=== PATIENT | female | born 1980 | race Caucasian/White ===

== ENCOUNTER → 2021-03-02 | Outpatient (CLI) | payer OTHER ==
[~2021-03-02] MED LIST: BUSP5TAB PO; CALC500T54 PO; CHOL10004 PO; DOCU-153 PO; FLUO10TA PO; HYDR-2761 PO; LACT1CAP21 PO; MAGN250T10 PO; METH-562 PO
[2021-03-02 13:30] LABS: BASO % 1 % (0-3); EOS # 0.1 x10^3/uL (0.0-0.7); EOS % 2 % (0-3); HEMATOCRIT 38.3 % (36.0-47.0); HEMOGLOBIN 13.1 g/dL (12.0-15.5); LYMPH # 1.4 x10^3/uL (1.0-4.8); LYMPH % 23 % (24-48); MEAN CORPUSCULAR HEMOGLOBIN 31 pg (25-35); MEAN CORPUSCULAR HGB CONC 34 g/dL (31-37); MEAN CORPUSCULAR VOLUME 91 fL (79-100); MONO # 0.5 x10^3/uL (0.0-1.1); MONO % 7 % (0-9); NEUT # 4.3 x10^3/uL (1.8-7.7); NEUT % 68 % (31-73); PLATELET COUNT 197 x10^3/uL (140-400); RED BLOOD COUNT 4.19 x10^6/uL (3.50-5.40); RED CELL DISTRIBUTION WIDTH 12.8 % (11.5-14.5); WHITE BLOOD COUNT 6.3 x10^3/uL (4.0-11.0)
[2021-03-02 13:38] LABS: PROTHROMBIN TIME PATIENT 13.5 SEC (11.7-14.0)
[2021-03-02 13:47] LABS: ALBUMIN 4.2 g/dL (3.4-5.0); ALBUMIN/GLOBULIN RATIO 1.4 (1.0-1.7); CALCIUM 9.4 mg/dL (8.5-10.1); CREATININE 0.8 mg/dL (0.6-1.0); GFR 78.7; POTASSIUM 4.2 mmol/L (3.5-5.1); TOTAL BILIRUBIN 0.3 mg/dL (0.2-1.0); TOTAL PROTEIN 7.2 g/dL (6.4-8.2)
== END ==
LOC: SURGPAT 12:58
PROVIDERS: ATTEND Neurological Surgery
DX: Z01.818 Encounter for other preprocedural examination (principal); M43.16 Spondylolisthesis, lumbar region; M48.062 Spinal stenosis, lumbar region with neurogenic claudication; M54.16 Radiculopathy, lumbar region
CPT/HCPCS: 36415; 80053; 82306; 85025; 85610; 85730; 87641

== ENCOUNTER 2021-03-03 08:30 | Inpatient (IN) | payer OTHER ==
[2021-03-02 13:22] VITALS: BP 107/68
[~2021-03-03] VITALS: Ht 160 cm; Wt 48.0 kg
[~2021-03-03 08:30] MED LIST changes: -CALC500T54 PO; -CHOL10004 PO; -DOCU-153 PO; -HYDR-2761 PO; -METH-562 PO
[2021-03-07] VITALS (9 sets, daily range): BP systolic 98–122; BP diastolic 57–74
[2021-03-07] MEDS ORDERED: HYDROmorphone 2 MG/ML VIAL IVP PRN (06:00)
[2021-03-07] MEDS ORDERED: PROCHLORPERAZINE 10 MG/2 ML VIAL. IVP PRN (06:00)
[2021-03-07] MEDS ORDERED: fentaNYL PF VIAL 100 MCG/2 ML VIAL IVP PRN ×2 (06:00)
[2021-03-07] MEDS ORDERED: MORPHINE SULFATE 2 MG/ML VIAL. IVP PRN (06:00)
[2021-03-07] MEDS ORDERED: IV RINGERS,LACTATED 1000ML 1,000 ML IV SCH (06:00)
[2021-03-07] MEDS ORDERED: GELATIN SPONGE SIZE 100. ONE (06:29)
[2021-03-07] MEDS ORDERED: KETOROLAC 60 MG/2 ML VIAL. ONE (06:29)
[2021-03-07] MEDS ORDERED: BUPIVACAINE-EPI 0.5%-1:200000 MPF 30 ML VIAL. ONE (06:29)
[2021-03-07] MEDS ORDERED: THROMBIN TOPICAL 20,000 UNIT SPRAY.SYRN KIT TP ONE (06:29)
[2021-03-07] MEDS ORDERED: CALC500T54 PO (06:44)
[2021-03-07] MEDS ORDERED: CHOL10004 PO (06:44)
[2021-03-07] MEDS ORDERED: PROPOFOL 100 ML IV ONE (07:59)
--- NOTE | 2021-03-07 08:01 | HP ---
03/07/2021 PREOPERATIVE HISTORY AND PHYSICAL HISTORY OF PRESENT ILLNESS: The patient is a pleasant 40-year-old who is having difficulty with back pain and significant right leg pain. She says the back pain is minimal. The leg pain involves the right buttock, posterior thigh, lateral thigh and leg. She says she feels numbness on occasion at the dorsum of her right foot. She says if she walks distances, she can feel her right foot slapping down. The problem is worse with activity and improves with sitting down or lying down. She is not taking any pain medication currently. She has had lumbar steroid injections, which did not help her. She has been doing physical therapy twice a week with no improvement. She also sees a chiropractor once a month. The problem began in 2018 with no inciting event. She rates her pain 7/10 at its worst, but it is usually 3-4/10. CURRENT MEDICATIONS: Fluoxetine, magnesium. PAST MEDICAL HISTORY: Anxiety. PAST SURGICAL HISTORY: Denies. SOCIAL HISTORY: , does not smoke, does not drink alcohol. ALLERGIES: No known drug allergies. REVIEW OF SYSTEMS: A 12-point review of systems was performed and is noncontributory except that mentioned above. PHYSICAL EXAMINATION: GENERAL: Alert and pleasant, in no acute distress. HEENT: Head is normocephalic, atraumatic. SKIN: Warm and dry. MUSCULOSKELETAL: Lumbar paraspinal muscle bulk is normal. Mild tenderness of the lower lumbar spine with palpation, normal range of motion of the lower extremities bilaterally. EXTREMITIES: No clubbing, cyanosis or edema. NEUROLOGIC: Alert and oriented x 3. Strength is 5/5 in the upper and lower extremities bilaterally. On sensory testing, she was intact to light touch bilaterally. In the upper and lower extremities, reflexes were 1+ throughout. Straight leg raising on the right was associated with right posterior thigh tightness and discomfort. Straight leg raising on the left was negative. Normal gait. IMAGING: I reviewed a lumbar MRI scan. On that study, there is a grade 2 anterolisthesis of L4 and L5. She has bilateral pars defects. I did not see significant canal stenosis. She had moderately severe bilateral neural foraminal narrowing which is worse on the right side. ASSESSMENT AND PLAN: She has a symptomatic radiculopathy related to spondylolisthesis and severe neural foraminal narrowing. She has had epidural steroid injections as well as physical therapy. Her pain is severe. My recommendation is for her to consider a laminectomy and instrumented fusion at L4-L5. I did discuss this with her. We also discussed the possibility of interbody fusion from an anterior lateral approach. I discussed the risk of surgery. I also discussed the expected postoperative course. She understands and would like to go ahead. EVGENY DR: Rishabh TID: [id number] BARBI
[2021-03-07] MEDS ORDERED: LIDOCAINE 2% PF 5 ML VIAL. ONE (08:02)
[2021-03-07] MEDS ORDERED: MIDAZOLAM HCL/PF 2 MG/2 ML VIAL. ONE (08:02)
[2021-03-07] MEDS ORDERED: REMIFENTANIL 2 MG VIAL. IV ONE (08:02)
[2021-03-07] MEDS ORDERED: ROCURONIUM 50 MG/5 ML VIAL. ONE (08:02)
[2021-03-07] MEDS ORDERED: fentaNYL PF VIAL 100 MCG/2 ML VIAL ONE (08:02)
[2021-03-07] MEDS ORDERED: PROPOFOL 10 MG/ML (20ML) VIAL. IV ONE (08:02)
[2021-03-07] MEDS ORDERED: 0.9 % SODIUM CHLORIDE 20 ML VIAL. IJ ONE (08:02)
--- NOTE | 2021-03-07 08:55 | RAD ---
EXAMINATION: CT lumbar spine without IV contrast INDICATION:40 years, Female, lumbar stenosis. COMPARISON: None TECHNIQUE: Spiral acquisition of images of the lumbar spine were obtained from the lower thoracic to the mid sacral levels. Sagittal and coronal 2D reformatted series were provided by the technologist. The CT scan was acquired using radiation reduction techniques, such automated exposure control, adjus tment of the mA and/or kV according to the patient's size and use of iterative reconstruction techniq ues. FINDINGS: Alignment: Chronic bilateral L5 pars defect with grade 1 anterolisthesis of L5 over S1. Vertebrae: There are 6 nonrib-bearing lumbar vertebra with lumbarization of S1. Severe degenerative c hanges at L5-S1 with disc space narrowing, endplate erosion, sclerosis and cystic changes as well as osteophytes. Curvilinear shape well-corticated osseous structure anterior to the S1 vertebral body, m ay represent chronic S1 anterior superior endplate fracture. Limbus vertebrae at L2 anterior superior endplate and S1 anterior inferior endplate. Schmorl's node at the superior endplate of L1. T12-L1: There is no central canal or neural foraminal narrowing. L1-L2: There is no central canal or neural foraminal narrowing. L2-L3: There is no central canal or neural foraminal narrowing. L3-L4: There is no central canal or neural foraminal narrowing. L4-L5: There is no central canal or neural foraminal narrowing. L5-S1:Grade 1 anterolisthesis of L4 over L5 with diffuse disc bulge and mild bilateral facet arthropa thy, causing severe bilateral neuroforaminal narrowing. No canal stenosis. Sacroiliac Joints: Unremarkable Additional findings: Unremarkable, within limitation of noncontrast exam. IMPRESSION: Chronic bilateral L5 pars defect with grade 1 anterolisthesis of L5 over S1, associated with diffuse disc bulge causing severe bilateral neuroforaminal narrowing. No Central canal stenosis. Electronically signed by: Oscar Palmer MD (03/07/2021 8:53 AM) [id number]
[2021-03-07] MEDS ORDERED: ePHEDrine PF IN SALINE 50 MG/10 ML SYRINGE. IV ONE (10:15)
[2021-03-07] MEDS ORDERED: PHENYLEPHRINE 10 MG/ML VIAL. ONE (10:57)
[2021-03-07] MEDS ORDERED: REMIFENTANIL 1 MG VIAL. IV ONE (11:49)
[2021-03-07] MEDS ORDERED: PROPOFOL 50 ML IV ONE (11:52)
[2021-03-07] MEDS ORDERED: SEVOFLURANE > 120 MINUTES. IH ONE (11:53)
[2021-03-07] MEDS ORDERED: ceFAZolin SODIUM IV Push 1 GM VIAL. IVP ONE (12:37)
[2021-03-07] MEDS ORDERED: HYDROmorphone 2 MG/ML VIAL ONE (13:00)
[2021-03-07] MEDS ORDERED: CALCIUM CARBONATE PO PRN (13:45)
[2021-03-07] MEDS ORDERED: MAGNESIUM HYDROXIDE 2,400 MG/30 ML ORAL.SUSP. PO PRN (14:00)
[2021-03-07] MEDS ORDERED: NALOXONE 0.4 MG/ML VIAL. IV PRN (14:00)
[2021-03-07] MEDS ORDERED: 0.9 % SODIUM CHLORIDE 10 ML DISP.SYRIN. IV PRN (14:00)
[2021-03-07] MEDS ORDERED: ACETAMINOPHEN 325 MG TABLET. PO PRN (14:00)
[2021-03-07] MEDS ORDERED: MAG HYDROX/ALUMINUM HYD/SIMETH 30 ML ORAL.SUSP PO PRN (14:00)
[2021-03-07] MEDS ORDERED: oxyCODONE/APAP 5/325 1 TAB TABLET PO PRN (14:00)
[2021-03-07] MEDS ORDERED: CALCIUM CARBONATE 500 MG TAB.CHEW PO PRN (14:00)
[2021-03-07] MEDS ORDERED: diphenhydrAMINE HCL 25 MG CAPSULE PO PRN (14:00)
[2021-03-07] MEDS ORDERED: PROCHLORPERAZINE 10 MG/2 ML VIAL. ONE (14:11)
--- NOTE | 2021-03-07 14:52 | OP ---
DATE OF SURGERY: 03/07/2021 PREOPERATIVE DIAGNOSES: Grade 2 spondylolisthesis L4-L5 with severe right-sided foraminal narrowing and severe right lumbar radiculopathy. POSTOPERATIVE DIAGNOSES: Grade 2 spondylolisthesis L4-L5 with severe right-sided foraminal narrowing and severe right lumbar radiculopathy. OPERATIONS PERFORMED: 1. Hemilaminotomy and transforaminal exploration and decompression of the right L4 and L5 nerve roots with microdiscectomy, right L4-L5. 2. Posterior instrumentation, L4-L5. 3. Posterolateral fusion L4-L5. Operation done with EMG monitoring, SSEP monitoring, motor evoked potentials, fluoroscopy, microscopic dissection, BrainLAB guidance. SPECIMEN: Disc and decompression. SURGEON: Esteban Kaur M.D. VAN DRIVER HELPER: Emily Issa APRN, assisted with the exposure, the placement of the pedicle screws, posterolateral fusion, decompression and closure. OPERATIVE INDICATIONS: The patient is a very pleasant 40-year-old who developed intractable back and right leg pain which failed conservative measures and has above-mentioned findings on imaging studies. I have recommended lumbar surgery. I did speak with her about the surgery, the risks, technique and expected postoperative course. She wished to go ahead. DESCRIPTION OF PROCEDURE: Following general endotracheal anesthesia, the patient was positioned prone on the Christopher table. Lumbar region prepped and draped in standard fashion. BLESSING hose and AV impulse boots were applied for DVT prophylaxis. The microscope was draped, fluoroscopy was draped and brought into the field. Monitoring was established. Ancef 2 grams given less than one hour prior to initiation of surgery. Using fluoroscopic guidance, a midline incision was made directly over the L5 spinous process. I attached the BrainLAB Star to the inferior aspect of the process and the BrainLAB system was initialized. I then carried my incision up to the superior L4 through inferior L5 and reflected the paraspinal muscles. Then, I exposed the lamina and facets as well as the transverse processes. I did drill into the posterior aspect of the pedicles of L4 and L5 using the black ball, followed by ball tip probe, followed by tap. I tapped at L5 and L4 and on the left side, placed the pedicle screws after I excoriated the transverse processes, lateral facets and aspirated 20 mL of bone marrow from the left iliac crest and mixed this with allograft bone and packed in the left lateral gutter. I did note that there was considerable sclerotic bone deep within L5, which prevented me from passing the jewel waxer without stripping to the full depth of the bone. I therefore settled on a 7.5, 35 screws in the L5, which I felt had very good purchase. The screw was placed. I did use the [place] spine system and then I went to L4. I was able to easily place a 6.5 x 40 screw in that location. A 35 mm ramy was placed. I did use reduction screws in L4. The L5 screw was then locked and torqued and that was applied to L4, but not tightened and then I went to the right side in a similar fashion, I cannulated the pedicles of L4 and L5. I did not yet place the pedicle screws. I then brought in the microscope and with microscopic technique. Using BrainLAB guidance, I burred down a hemilaminotomy. I worked superiorly and found a considerable amount of hypertrophic bone, which was wedged into the proximal and medial portion of the foramen and densely scarred to the underlying ligamentum flavum. I had to work quite far superiorly encountered the dura and follow takeoff of the nerve root and root around the pedicle lifting and removing this bone was then allowed me to gain access. After thinning the bone, I used a 2 mm micro Kerrisons to trim the residual bone away as well as ligament, which allowed me to decompress the roots in an atraumatic fashion. During this time, I performed a hemilaminotomy and peeled ligamentum flavum away and performed a small partial foraminotomy and fully decompressed the entire region. I excoriated laterally then the facet and the transverse process were packed allograft bone in that location along with autograft that I obtained from the decompression. I then placed pedicle screws 7.5 x 35 in L5 and 6.5 x 40 in L4. The ramy was placed. I distracted slightly and reduced. I did enter the disc space and performed discectomy, but there was very little disc material within here. Based on the position of the L4 root, I felt that cage placement would expose the root to considerable amount of possible injury and I did not place an interbody cage. The disc was covered with hypertrophic bone. I did drill through this to gain access into the disc space. At this point, I had an excellent decompression, the root was free and pulsating and was ribbon-like before when I first visualized it compressed beneath the hypertrophic bone. I had excellent hemostasis. I did lay Gelfoam over the exposed size. I irrigated copiously and then I during this time torqued and retorqued the hardware sequentially. Films looked excellent. I removed the towers and after irrigation, then I closed the wound in layers with absorbable suture and skin was closed with 4-0 subcuticular stitch. I felt the surgery went very well. KEMAR/ANNETTE DR: KEMAR/eileen TID: [id number] MTDAlly
--- NOTE | 2021-03-07 16:03 | NUR ---
received from recovery. she is rating her pain "3". history and assessment completed. she has good motion sensation, pulses in lower extremities. resting quietly in bed with ice to incisional area.
[2021-03-07] MEDS: ceFAZolin SODIUM IV Push 1 GM VIAL. IVP SCH ×2 (17:18→21:24)
[2021-03-07] MEDS: POTASSIUM CL 20MEQ D5-0.45NACL 1,000 ML IV SCH (18:14)
[2021-03-07] MEDS ORDERED: ONDANSETRON PF 4 MG/2 ML VIAL. IVP PRN (18:15)
[2021-03-07] MEDS: fentaNYL PF VIAL 100 MCG/2 ML VIAL IVP PRN (18:19)
[2021-03-07] MEDS: DOCUSATE SODIUM 100 MG CAPSULE. PO SCH (21:26)
[2021-03-07] MEDS: oxyCODONE/APAP 5/325 1 TAB TABLET PO PRN (21:30)
[2021-03-08] VITALS (13 sets, daily range): BP systolic 61–111; BP diastolic 35–71
[2021-03-08] MEDS: POTASSIUM CL 20MEQ D5-0.45NACL 1,000 ML IV SCH ×2 (03:20→15:52)
[2021-03-08] MEDS: oxyCODONE/APAP 5/325 1 TAB TABLET PO PRN (04:35)
[2021-03-08] MEDS: fentaNYL PF VIAL 100 MCG/2 ML VIAL IVP PRN (05:58)
[2021-03-08] MEDS: ceFAZolin SODIUM IV Push 1 GM VIAL. IVP SCH (06:00)
[2021-03-08] MEDS: FLUoxetine HCL 10 MG CAPSULE PO SCH (06:25)
[2021-03-08] MEDS: busPIRone 5 MG TABLET. PO SCH (06:25)
[2021-03-08] MEDS: DOCUSATE SODIUM 100 MG CAPSULE. PO SCH ×2 (08:40→20:36)
--- NOTE | 2021-03-08 11:32 | NUR ---
This nurse was called into the patients room around 0900. Pain medication was given around 0840 and she also ambulated to the bathroom around 0850. At 0900 patient was sitting up in the chair stating she felt dizzy, sweaty, vision was blurry, shaking slightly, and appeared very tense. Vital signs taken. BP low 61/35 with P at 52. Patient was reclined in the recliner and a small bolus of 50cc given. Vitals were taken roughly every fifteen minutes and has now stabilized back to her normal BP ranges per patient report. Patient and her are unsure if it was the pain medication that caused it or if she was having a panic attack or if it was possibly an orthostatic BP from the bathroom trip. Last BP taken was 111/71 with pulse of 103. Patient reports her pain around a 2-3. She states she feels much better but when PT came to assess her around 1100 she asked him to come back in worries the episode would happen again. She is now resting in her recliner and appears very anxious/worried about what is going to happen next. Will continue to monitor. at bedside.
--- NOTE | 2021-03-08 13:33 | PDOC ---
PROGRESS NOTES Date of Service DATE: 03/08/21 TIME: 13:31 Subjective Subjective Patient seen at 1145 POD #1 S/P lumbar decompression and instrumented fusion L4-5 working with PT Pain controlled with medication Objective Objective Vital Signs Date Time Temp Pulse Resp B/P (MAP) Pulse Ox O2 Delivery O2 Flow Rate FiO2 03/08/21 10:25 103 111/71 (84) 03/08/21 09:12 95 Room Air 03/08/21 06:34 98.2 18 98.2 03/07/21 14:20 10. Intake and Output 03/08/21 07:00 Intake Total 2560 ml Output Total 3075 ml Balance -515 ml Intake Oral 360 ml IV Total 1200 ml Blood Product 1000 ml Output Urine Total 3000 ml Estimated Blood Loss 75 ml Physical Exam General: Alert, Oriented X3, Cooperative Neuro: Normal speech, Other Skin: Other (Dressing dry and intact) Plan Plan of Care continue PT, Pain medication, wound care likely dc home tomorrow Comment Review of Relevant I have reviewed the following items gera (where applicable) has been applied. Labs Laboratory Tests Test 03/07/21 05:41 Bedside Urine HCG, Qualitative Hcg negative (Negative) Medications Current Medications Fentanyl Citrate (Fentanyl 2ml Vial) 25 mcg PRN Q5MIN PRN IVP MILD PAIN 1-3; Start 03/07/21 at 06:00; Stop 03/08/21 at 05:59; Status DC Fentanyl Citrate (Fentanyl 2ml Vial) 50 mcg PRN Q5MIN PRN IVP MODERATE PAIN 4-6 Last administered on 03/07/21at 14:13; Start 03/07/21 at 06:00; Stop 03/08/21 at 05:59; Status DC Morphine Sulfate (Morphine Sulfate) 1 mg PRN Q10MIN PRN IVP SEVERE PAIN 7-10; Start 03/07/21 at 06:00; Stop 03/08/21 at 05:59; Status DC Ringer's Solution 1,000 ml @ 30 mls/hr Q24H IV ; Start 03/07/21 at 06:00; Stop 03/07/21 at 17:59; Status DC Hydromorphone HCl (Dilaudid) 0.5 mg PRN Q10MIN PRN IVP SEVERE PAIN 7-10, 2nd CHOICE; Start 03/07/21 at 06:00; Stop 03/08/21 at 05:59; Status DC Prochlorperazine Edisylate (Compazine) 5 mg PACU PRN PRN IVP NAUSEA, MRX1 Last administered on 03/07/21at 14:15; Start 03/07/21 at 06:00; Stop 03/08/21 at 05:59; Status DC Cefazolin Sodium/ Dextrose 50 ml @ 100 mls/hr 1X PREOP PRN IV PRIOR TO PROCEDURE Last administered on 03/07/21at 09:16; Start 03/07/21 at 06:00; Stop 03/07/21 at 18:00; Status DC Gelatin (Gelfoam Size 100) 1 each STK-MED ONCE .ROUTE Last administered on 03/07/21at 09:45; Start 03/07/21 at 06:29; Stop 03/07/21 at 06:29; Status DC Bupivacaine HCl/ Epinephrine Bitart (Sensorcain-Epi 0.5%-1:[id number] Mpf) 30 ml STK-MED ONCE .ROUTE Last administered on 03/07/21at 09:45; Start 03/07/21 at 06:29; Stop 03/07/21 at 06:29; Status DC Ketorolac Tromethamine (Toradol Im) 60 mg STK-MED ONCE .ROUTE Last administered on 03/07/21at 09:45; Start 03/07/21 at 06:29; Stop 03/07/21 at 06:29; Status DC Thrombin 20,000 unit STK-MED ONCE TP Last administered on 03/07/21at 09:45; Start 03/07/21 at 06:29; Stop 03/07/21 at 06:30; Status DC Propofol 100 ml @ As Directed STK-MED ONCE IV ; Start 03/07/21 at 07:59; Stop 03/07/21 at 07:59; Status DC Propofol (Diprivan) 200 mg STK-MED ONCE IV ; Start 03/07/21 at 08:02; Stop 03/07/21 at 08:02; Status DC Lidocaine HCl (Lidocaine Pf 2% Vial) 5 ml STK-MED ONCE .ROUTE ; Start 03/07/21 at 08:02; Stop 03/07/21 at 08:02; Status DC Sodium Chloride (SODIUM CHLORIDE 20ml) 20 ml STK-MED ONCE IJ ; Start 03/07/21 at 08:02; Stop 03/07/21 at 08:02; Status DC Fentanyl Citrate (Fentanyl 2ml Vial) 100 mcg STK-MED ONCE .ROUTE ; Start 03/07/21 at 08:02; Stop 03/07/21 at 08:02; Status DC Rocuronium [place] (Zemuron) 50 mg STK-MED ONCE .ROUTE ; Start 03/07/21 at 08:02; Stop 03/07/21 at 08:02; Status DC Midazolam HCl (Versed) 2 mg STK-MED ONCE .ROUTE ; Start 03/07/21 at 08:02; Stop 03/07/21 at 08:02; Status DC Remifentanil HCl (Ultiva) 2 mg STK-MED ONCE IV ; Start 03/07/21 at 08:02; Stop 03/07/21 at 08:02; Status DC Ephedrine Sulfate (ePHEDrine PF IN SALINE SYRINGE) 50 mg STK-MED ONCE IV ; Start 03/07/21 at 10:15; Stop 03/07/21 at 10:15; Status DC Phenylephrine HCl (Enoc-Synephrine Inj) 10 mg STK-MED ONCE .ROUTE ; Start 03/07/21 at 10:57; Stop 03/07/21 at 10:58; Status DC Remifentanil HCl (Ultiva) 1 mg STK-MED ONCE IV ; Start 03/07/21 at 11:49; Stop 03/07/21 at 11:50; Status DC Propofol 50 ml @ As Directed STK-MED ONCE IV ; Start 03/07/21 at 11:52; Stop 03/07/21 at 11:53; Status DC Sevoflurane (Ultane) 90 ml STK-MED ONCE IH ; Start 03/07/21 at 11:53; Stop 03/07/21 at 11:53; Status DC Cefazolin Sodium (Ancef) 1 gm STK-MED ONCE IVP ; Start 03/07/21 at 12:37; Stop 03/07/21 at 12:37; Status DC Hydromorphone HCl (Dilaudid) 2 mg STK-MED ONCE .ROUTE ; Start 03/07/21 at 13:00; Stop 03/07/21 at 13:00; Status DC Buspirone HCl (Buspar) 5 mg DAILY PO Last administered on 03/08/21at 06:25; Start 03/08/21 at 06:30 Non-Formulary Medication (Calcium Carbonate (Calcium)) 500 tab BID PRN PO SEE COMMENTS; Start 03/07/21 at 13:45; Status UNV Fluoxetine HCl (PROzac) 10 mg DAILY PO Last administered on 03/08/21at 06:25; Start 03/08/21 at 06:30 Lactobacillus Rhamnosus (Culturelle) 1 cap QODAY PO ; Start 03/09/21 at 09:00 Magnesium Oxide (Magnesium Oxide) 200 mg QODAY PO ; Start 03/09/21 at 09:00 Fentanyl Citrate (Fentanyl 2ml Vial) 50 mcg PRN Q2HR PRN IVP PAIN Last administered on 03/08/21at 05:58; Start 03/07/21 at 14:00 Acetaminophen (Tylenol) 650 mg PRN Q6HRS PRN PO MILD PAIN / TEMP > 100.3'F; Start 03/07/21 at 14:00 Al Hydroxide/Mg Hydroxide (Mylanta Plus Xs) 30 ml PRN Q3HRS PRN PO HEARTBURN / GAS; Start 03/07/21 at 14:00 Calcium Carbonate/ Glycine (Tums) 500 mg PRN Q3HRS PRN PO INDIGESTION; Start 03/07/21 at 14:00 Diphenhydramine HCl (Benadryl) 25 mg PRN Q6HRS PRN PO ITCHING; Start 03/07/21 at 14:00 Naloxone HCl (Narcan) 0.1 mg PRN Q2MIN PRN IV SEE COMMENTS; Start 03/07/21 at 14:00 Sodium Chloride (Normal Saline Flush) 3 ml QSHIFT PRN IV AFTER MEDS AND BLOOD DRAWS; Start 03/07/21 at 14:00 Potassium Chloride/Dextrose/ Sod Cl 1,000 ml @ 75 mls/hr [id number] IV Last admi nistered on 03/07/21at 18:14; Start 03/07/21 at 14:00 Oxycodone/ Acetaminophen (Percocet 5/325) 1 tab PRN Q4HRS PRN PO MILD PAIN, 1ST CHOICE Last administered on 03/08/21at 04:35; Start 03/07/21 at 14:00 Oxycodone/ Acetaminophen (Percocet 5/325) 2 tab PRN Q4HRS PRN PO MODERATE PAIN, SEVERE PAIN Last administered on 03/08/21at 08:42; Start 03/07/21 at 14:00 Methocarbamol (Robaxin) 750 mg PRN TID PRN PO MUSCLE SPASMS; Start 03/07/21 at 14:00 Docusate Sodium (Colace) 100 mg BID PO Last administered on 03/08/21at 08:40; Start 03/07/21 at 21:00 Magnesium Hydroxide (Milk Of Magnesia) 2,400 mg PRN Q12HR PRN PO CONSTIPATION; Start 03/07/21 at 14:00 Cefazolin Sodium (Ancef) 1 gm Q8HRS IVP Last administered on 03/08/21at 06:00; Start 03/07/21 at 17:00; Stop 03/08/21 at 06:01; Status DC Prochlorperazine Edisylate (Compazine) 10 mg STK-MED ONCE .ROUTE ; Start 03/07/21 at 14:11; Stop 03/07/21 at 14:11; Status DC Ondansetron HCl (Zofran) 4 mg PRN Q8HRS PRN IVP NAUSEA/VOMITING Last administered on 03/07/21at 18:22; Start 03/07/21 at 18:15 Active Scripts Active Reported Calcium (Calcium Carbonate) 500 Mg Tab.chew 500 Tab PO BID PRN 30 Days Vitamin D3 (Vitamin D) 25 Mcg Tablet 25 Mcg PO DAILY 1,000 UNITS = 25 MCG Magnesium (Magnesium Oxide) 250 Mg Tablet 250 Mg PO QODAY Culturelle (Lactobacillus Rhamnosus Gg) 1 Each Capsule 1 Each PO QODAY Buspirone Hcl 5 Mg Tablet 5 Mg PO DAILY Fluoxetine Hcl 10 Mg Tablet 10 Mg PO DAILY Vitals/I & O Vital Sign - Last 24 Hours 03/07/21 03/07/21 03/07/21 03/07/21 13:50 13:50 14:05 14:13 Temp 97.6 97.6 97.6 97.6 Pulse 90 122 Resp 15 16 16 B/P (MAP) 125/47 129/53 Pulse Ox 100 100 100 O2 Delivery Simple Mask Mask Simple Mask Simple Mask O2 Flow Rate 10 10 10 10.0 03/07/21 03/07/21 03/07/2121 14:20 14:37 14:50 15:00 Temp 97.6 97.6 97.5 98.0 97.6 97.6 97.5 98.0 Pulse 98 98 96 94 Resp 15 15 16 18 B/P (MAP) 143/58 149/45 131/46 113/73 (86) Pulse Ox 100 97 94 96 O2 Delivery Simple Mask Room Air Room Air Room Air O2 Flow Rate 10. 03/07/21 03/07/21 03/07/21 03/07/21 15:15 15:30 15:45 15:48 Temp 98.0 98.0 Pulse 88 Resp 16 B/P (MAP) 119/69 (86) 122/71 (88) 119/66 (83) Pulse Ox 95 O2 Delivery Room Air Room Air Room Air Room Air 03/07/21 03/07/21 03/07/21 03/07/21 16:15 16:45 17:45 18:39 Temp 97.3 97.9 97.9 97.3 97.9 97.9 Pulse 71 78 78 Resp 20 18 16 B/P (MAP) 114/72 (86) 110/69 (83) 105/70 (82) 109/74 (86) Pulse Ox 96 97 97 O2 Delivery Room Air Room Air Room Air Room Air 03/07/21 03/07/21 03/07/21 03/07/21 18:49 20:00 21:30 22:00 Resp 16 16 16 Pulse Ox 97 97 O2 Delivery Room Air Room Air Room Air 03/07/21 03/08/21 03/08/21 03/08/21 22:59 03:35 04:35 05:05 Temp 98.3 98.4 98.3 98.4 Pulse 91 88 Resp 16 16 16 16 B/P (MAP) 98/57 (71) 99/56 (70) Pulse Ox 99 100 100 100 O2 Delivery Room Air Room Air Room Air Room Air 03/08/21 03/08/21 03/08/21 03/08/21 05:58 06:28 06:34 08:15 Temp 98.2 98.2 Pulse 93 Resp 16 16 18 B/P (MAP) 99/63 (75) Pulse Ox 95 95 O2 Delivery Room Air Room Air Room Air 03/08/21 03/08/21 03/08/218/21 08:42 09:00 09:05 09:08 Pulse 52 80 86 B/P (MAP) 61/35 (44) 87/56 (66) 99/64 (76) Pulse Ox 95 O2 Delivery Room Air 03/08/21 03/08/21 03/08/21 03/08/21 09:12 09:25 09:40 09:55 Pulse 89 89 77 B/P (MAP) 105/67 (80) 103/67 (79) 100/65 (77) Pulse Ox 95 O2 Delivery Room Air 03/08/21 03/08/21 10:10 10:25 Pulse 83 103 B/P (MAP) 105/69 (81) 111/71 (84) Intake and Output 03/07/21 03/07/21 03/08/21 15:00 23:00 07:00 Intake Total 1200 ml 240 ml 1120 ml Output Total 1475 ml 700 ml 900 ml Balance -275 ml -460 ml 220 ml Justifications for Admission Other Justification LILY BRAUN MD Mar 08, 2021 13:33
[2021-03-08] MEDS: METHOCARBAMOL 750 MG TABLET PO PRN ×2 (14:13→22:46)
[2021-03-08] MEDS ORDERED: HYDROcodone/APAP 5/325MG 1 TAB TABLET PO PRN (14:30)
[2021-03-08] MEDS: HYDROcodone/APAP 5/325MG 1 TAB TABLET PO PRN ×3 (15:09→22:47)
[2021-03-09] MEDS: POTASSIUM CL 20MEQ D5-0.45NACL 1,000 ML IV SCH (06:00)
[2021-03-09 06:30] VITALS: BP 97/64
[2021-03-09] MEDS: DOCUSATE SODIUM 100 MG CAPSULE. PO SCH (08:04)
[2021-03-09] MEDS: FLUoxetine HCL 10 MG CAPSULE PO SCH (08:05)
[2021-03-09] MEDS: busPIRone 5 MG TABLET. PO SCH (08:05)
[2021-03-09] MEDS: METHOCARBAMOL 750 MG TABLET PO PRN ×2 (08:05→14:27)
[2021-03-09] MEDS ORDERED: LACTOBACILLUS RHAMNOSUS GG 1 CAPSULE. PO SCH (09:00)
[2021-03-09] MEDS ORDERED: MAGNESIUM OXIDE 400 MG TABLET PO SCH (09:00)
[2021-03-09] MEDS: HYDROcodone/APAP 5/325MG 1 TAB TABLET PO PRN ×2 (09:17→13:38)
--- NOTE | 2021-03-09 10:00 | NUR ---
Doing well this morning. No c/o at this time. Up in chair with ice pack. Cont. monitor.
[2021-03-09 11:10] VITALS: BP 103/69
[2021-03-09] MEDS ORDERED: DOCU-153 PO (12:34)
[2021-03-09] MEDS ORDERED: METH-562 PO (12:34)
[2021-03-09] MEDS ORDERED: HYDR-2761 PO (12:34)
--- NOTE | 2021-03-09 12:36 | DISCH ---
DISCHARGE INSTRUCTIONS Condition on Discharge Condition on Discharge: Stable Activity After Discharge Activity Instructions for Disc: Activity as tolerated, Avoid exertion Other activity instructions: brace on when up Bathing Instructions: Shower-keep dressing dry Lifting Instructions after Dis: No pulling or pushing, Do not lift >10 pounds Driving Instructions after Dis: No driving for 2 weeks Diet after Discharge Additional Diet Restrictions: resume home diet Wound Incision Care Wound/Incision Care: Ice to area for comfort Other wound/incision instructi: remove dressing in 48 hours if dry then may shower, no soaking Contacting the [facility] after DC Call your doctor for: Concerns you may have Follow-Up Follow up with: Dr. Kaur's nurse in 2 weeks [phone] Treatment/Equipment after DC Adaptive Equipment Issued: LILY Cordoba MD Mar 09, 2021 12:36
--- NOTE | 2021-03-09 14:37 | NUR ---
Discharge instructions given with prescriptions. Answered questions and concerns. Both patient and spouse verbalized understanding. Pt discharged home. Escorted out by w/c.
--- NOTE | 2021-03-09 20:52 | DS ---
DATE OF DISCHARGE: 03/09/2021 DATE OF SURGERY: 03/07/2021. DISCHARGE DIAGNOSES: Grade 2 spondylolisthesis, L4-L5 with severe right-sided foraminal narrowing and severe right lumbar radiculopathy. OPERATION PERFORMED: 1. Hemilaminotomy and transforaminal exploration and decompression of the right L4 and L5 nerve roots with microdiskectomy, right L4-L5. 2. Posterior instrumentation, L4-L5. 3. Posterolateral fusion, L4-L5. HISTORY OF PRESENT ILLNESS: The patient is a pleasant 40-year-old who developed intractable back and right leg pain, which failed to improve with conservative measures and has had the above-mentioned findings on imaging studies. I recommended lumbar surgery. I spoke with her about the surgery, the risks, the technique and the expected postoperative course. She understood and wished to proceed. HOSPITAL COURSE: She was admitted to the floor postoperatively where she has done well. She has been up ambulating with physical therapy. Instruction was given to her regarding her activities. Her pain is well controlled now and she is in good condition to discharge home. DISCHARGE MEDICATIONS: She will resume her medications per the MRAD. DISCHARGE INSTRUCTIONS: She was instructed regarding incision care, activity restrictions and expectations for the next several weeks. She will follow up in our office in 2 weeks. She understands to call with any questions or concerns. ESAU [place]: Rishabh TID: [id number]
--- NOTE | 2021-03-10 09:09 | PATHOLOGY ---
[facility] Accession Number: [id number] . 01 Material submitted: . vertebral column - LUMBAR DECOMPRESSION . 01 Clinical history: . LUMBAR SPONDYLOLISTHESIS, RADICULO, STENOSIS LUMBAR LAMINECTOMY, FORAMINAL DECOMPRESSION, INTERBODY L4-5 POST. LATERAL FUSION, POST-INSTR. L4 . 02 Diagnosis: Segments of fibrocartilaginous, fibroadipose, and skeletal muscle tissue and bone, lumbar decompression: - Degenerative changes of fibrocartilaginous tissue. (ELIZABETHM:antonieta; 03/09/2021) R 03/09/2021 1705 Local . 02 Comment: There is no evidence of an acute inflammatory process or malignancy. (JPM:antonieta; 03/09/2021) . 02 Electronically signed: . Pee Lima MD, Pathologist NPI- [id number] . 01 Gross description: . Received in formalin labeled "Dona Matute and #1 lumbar decompression". Received are multiple fibrous pink-hale soft tissue fragment admixed with cartilage/bone measuring in aggregate 3.0 x 2.5 x 0.5 cm. The specimen is representatively submitted in cassette A1 after decalcification.([facility]; 03/08/2021) . BLJ/J 03/09/2021 1704 Local . 02 Pathologist provided ICD-10: M51.36 . 02 CPT . 835222, [id number] Specimen Comment: A courtesy copy of this report has been sent to [phone] Specimen Comment: Report sent to Performed at: [address], [place], [place] [id number] MD Cristóbal Bartholomew MD Phone: [phone] Performed at: 02 [facility] [address] [place], [place] [id number] MD Pee Lima MD Phone: [phone]
== END 2021-03-09 14:37 | disposition home or self-care (01) | DRG 460 ==
LOC: OPSVCIP 03-07 06:14 → EDUNIT# 03-07 08:30 → 4 SOUTHEST 03-07 15:28
PROVIDERS: ADMIT Neurological Surgery; ATTEND Neurological Surgery
PROC: 01NB0ZZ Release Lumbar Nerve, Open Approach (ICD-10-PCS; 2021-03-07)
PROC: 0SB20ZZ Excision of Lumbar Vertebral Disc, Open Approach (ICD-10-PCS; 2021-03-07)
PROC: 4A11X4G Monitoring of Peripheral Nervous Electrical Activity, Intraoperative, External Approach (ICD-10-PCS; 2021-03-07)
PROC: 0SG0071 Fusion of Lumbar Vertebral Joint with Autologous Tissue Substitute, Posterior Approach, Posterior Column, Open Approach (ICD-10-PCS; principal; 2021-03-07 08:30)
DX: M48.061 Spinal stenosis, lumbar region without neurogenic claudication (principal); M54.16 Radiculopathy, lumbar region; M43.16 Spondylolisthesis, lumbar region; F41.9 Anxiety disorder, unspecified
CPT/HCPCS: 36415; 72131; 76000; 81025; 86850; 86900; 86901; 88304; 88311; A4213; A4222; A4314; A4364; A4556; A4930; A6254; A6257; A6258; C1713; J0690; J0780; J1170; J1885; J2250; J2370; J2405; J2704; J3010; J3480; J3490; 97110-GP; 97116-GP; 97530-GP; G0378